=== PATIENT | male | born 1985 | race Caucasian/White ===

== ENCOUNTER 2024-03-12 15:27 | Inpatient (IN) | payer OTHER, SELFPAY ==
[2024-03-11] VITALS (12 sets, daily range): BP systolic 93–119; BP diastolic 50–83; BMI 22.6
--- NOTE | 2024-03-11 10:21 | ED.GENMED ---
History of Present Illness
<ORLIN Aguilar Last Filed: 03/11/24 17:26>
General
Chief Complaint: Head Injury
Source: patient
Exam Limitations: none
Time Seen by Provider: 03/11/24 10:21
Nursing documentation reviewed up to this point in time: agreed with
History of Present Illness
History of Present Illness:
This is a 38 y/o male presenting to the emergency department today with concerns of diplopia, nausea, vomiting. Patient states that his diplopia started this morning upon awakening. Patient states that he had different objects, he started to see
double. Patient states that when he stood up this morning he started to walk and felt that he tripped on a piece of clothing and fell and hit his head on the dresser. Patient is not recall what side of the head he hit the dresser. Patient reports
that since hitting his head, he has had nausea and vomiting. Patient has never had double vision before. Patient has never had vertigo before. Patient denies chest pain, eye pain, shortness of breath, abdominal pain, fevers or chills. Patient
states that he has been feeling well the past few days. Father present in room with patient who states that patient has been acting normally the past few days and denies any changes in his speech. Patient states also that he has a very difficult
time walking.
Past History
<ORLIN Aguilar Last Filed: 03/11/24 17:26>
Past History
ED Past Medical History: None; Negative HTN, Hypercholesterolemia, IDDM or NIDDM
ED Past Surgical History: Negative Cardiac or Cholecystectomy
Social History
Tobacco: Non-smoker
Alcohol: Occasional
Drug: None
Personal:
Living: with family
Employment: Employed
Family History
Family History: Negative Early CAD
Review of Systems
<ORLIN Aguilar Last Filed: 03/11/24 17:26>
Review of Systems
All Other Systems: ROS reviewed and negative except as documented in HPI and ROS
Phy Exam
<Melissa Baca PA-C - Last Filed: 03/11/24 17:26>
Physical Exam
Physical Exam:
General: Patient is well appearing and in no acute distress; non-toxic
Skin: Warm and dry, no rashes or lesions
Head: Normocephalic, atraumatic
Eyes: Sclera non-icteric. EOMs intact. PERRLA. Visual Acquity 20/30 bilaterally. No VIRGEN, no cranial nerve palsy. Sensation of diplopia occurs when both eyes are open but dissipates when either eye is covered.
Cardiac: Regular rate and rhythm, no murmurs
Peripheral Vascular: No lower extremity swelling or edema.
Pulm: Normal respiratory effort, no wheezes, rales, or rhonchi
Abdomen: No abdominal tenderness to palpation
Musculoskeletal: 5/5 strength in bilateral upper and lower extremeties
Neuro: AAOx3. GCS 15. CN II-XII intact, no focal neurologic deficits. Normal finger to nose, heel to fitzgerald testing.
Psychiatric: Appropriate mood and affect.
Course
<Melissa Baca PA-C - Last Filed: 03/11/24 17:26>
Orders/Labs/Results
Orders:
Orders
03/11/24 Breakfast
Regular
03/11/24 10:26
Ondansetron Injectable [Zofran] 4 mg IV NOW STA
03/11/24 10:27
0.9% Sodium Chloride 1000 ml [Nss] 1,000 ml IV BOLUS
03/11/24 10:30
Comprehensive Metabolic Panel Urgent
Ferritin Urgent
Comment: ADD ON
Folate Urgent
Comment: ADD ON
TSH Reflex To Free T4 Urgent
Comment: ADD ON
Vitamin B12 Urgent
Comment: ADD ON
Vitamin D, 25-Oh Urgent
03/11/24 10:43
Complete Blood Count/With Diff Urgent
03/11/24 10:45
CT Angio Head W/Wo Iv Contrast [CT Head Angio W/wo Iv Contrast] Urgent
Comment:
Reason For Exam: double vision
03/11/24 13:15
Meclizine [Antivert] 25 mg PO NOW STA
03/11/24 14:42
Admit/Transfer Patient As Directed
Co-Sign Provider:
Level of Care: Observation services
Assign to:: Telemetry
Physician / Group: Audrey
Diagnosis: Double Vision
Reason for Telemetry: CVA/TIA
Date to Stop Telemetry: 03/14/24
Time to Stop Telemetry: 11:00
03/11/24 14:48
Code Status As Directed
Resuscitation Status: Full Code
03/11/24 15:06
Add On- LAB Routine
Comments:: Please add to today's labs or draw as routine
Tests Added?: TSH reflex, Ferritin, Folate, Vit. B12, ESR, vitD25
03/11/24 17:05
Acetaminophen [Tylenol] 650 mg PO Q4HPRN PRN
03/11/24 17:05
Case Management Consult ONCE
Case Management Consult: Discharge Planning
Comment: stroke/tia
DIETARY CONSULT Routine
Reason for Consult: stroke/TIA
NEUROLOGY CONSULT Routine
Consulting Provider: Camden Valdes
Was physician already notified: Yes
MA Neck With Contrast Routine
Comment:
Reason For Exam: double vision
Recent pill cam endoscopy?: No
MR Brain W/o & With Contrast Routine
Comment:
Reason For Exam: double vision
Recent pill cam endoscopy?: No
Activity As Directed
Activity Level: Out of Bed- Chair
With Assistance
NIH Stroke Scale As Directed
Directions: Per protocol
Comment: every shift and with any change in condition or mental status
Neurological Checks As Directed
Frequency: q4h
Additional Instructions:: q4h x 24h upon admission to the floor, then qshift & with any change in condition
and mental status
Orthostatic Vital Signs As Directed
Orthostatic VS Frequency: Daily
Patient Education As Directed
Type: Stroke education packet
Comment: provide to patient and family
Pneumatic Compression Sleeves As Directed
Type: Knee high
Vital Signs As Directed
Frequency: Per unit guidelines
Smoking Cessation Counseling [RESP] Routine
Ot Eval And Treat Routine
Pt Eval And Treat Routine
Activity Level: Out of Bed-Early Mobility
With Assistance
Speech Therapy Eval & Treat Routine
DX Deep Vein Thrombosis Video Routine
03/12/24 06:00
Cardiovascular Evaluation IN AM
Complete Blood Count/No Diff IN AM
Comprehensive Metabolic Panel IN AM
Glycohemoglobin (HgbA1c) IN AM
Magnesium IN AM
03/12/24 08:00
Aspirin Chewable [Low Strength Aspirin] 81 mg PO DAILY
03/14/24 11:00
DC Protocol for Telemetry ONCE
Abnormal Lab Results
03/11/24 03/11/24
10:30 10:43
MCH 31.3 H pg
(27.0-31.0)
Chloride 108 H mmol/L
(98-107)
BUN 21 H mg/dl
(9-20)
Glucose 109 H mg/dl
(70-99)
Total Bilirubin 1.5 H mg/dl
(0.2-1.3)
03/11/24 10:43
03/11/24 10:30
Vital Signs
Initial and Last Documented VS:
Initial Vital Signs
Temp Pulse Resp BP Pulse Ox
98 F 50 16 98/57 98
03/11/24 10:11 03/11/24 10:11 03/11/24 10:11 03/11/24 10:11 03/11/24 10:11
Last Documented Vital Signs
Temp Pulse Resp BP Pulse Ox
97.9 F 49 16 112/69 96
03/11/24 17:02 03/11/24 17:02 03/11/24 17:02 03/11/24 17:02 03/11/24 17:02
<Elizabeth Monroy MD - Last Filed: 03/11/24 13:24>
Orders/Labs/Results
Orders:
Orders
03/11/24 Breakfast
Regular
03/11/24 10:26
Ondansetron Injectable [Zofran] 4 mg IV NOW STA
03/11/24 10:27
0.9% Sodium Chloride 1000 ml [Nss] 1,000 ml IV BOLUS
03/11/24 10:30
Comprehensive Metabolic Panel Urgent
Ferritin Urgent
Comment: ADD ON
Folate Urgent
Comment: ADD ON
TSH Reflex To Free T4 Urgent
Comment: ADD ON
Vitamin B12 Urgent
Comment: ADD ON
Vitamin D, 25-Oh Urgent
03/11/24 10:43
Complete Blood Count/With Diff Urgent
03/11/24 10:45
CT Angio Head W/Wo Iv Contrast [CT Head Angio W/wo Iv Contrast] Urgent
Comment:
Reason For Exam: double vision
03/11/24 13:15
Meclizine [Antivert] 25 mg PO NOW STA
03/11/24 14:42
Admit/Transfer Patient As Directed
Co-Sign Provider:
Level of Care: Observation services
Assign to:: Telemetry
Physician / Group: Audrey
Diagnosis: Double Vision
Reason for Telemetry: CVA/TIA
Date to Stop Telemetry: 03/14/24
Time to Stop Telemetry: 11:00
03/11/24 14:48
Code Status As Directed
Resuscitation Status: Full Code
03/11/24 15:06
Add On- LAB Routine
Comments:: Please add to today's labs or draw as routine
Tests Added?: TSH reflex, Ferritin, Folate, Vit. B12, ESR, vitD25
03/11/24 17:05
Acetaminophen [Tylenol] 650 mg PO Q4HPRN PRN
03/11/24 17:05
Case Management Consult ONCE
Case Management Consult: Discharge Planning
Comment: stroke/tia
DIETARY CONSULT Routine
Reason for Consult: stroke/TIA
NEUROLOGY CONSULT Routine
Consulting Provider: Camden Valdes
Was physician already notified: Yes
MA Neck With Contrast Routine
Comment:
Reason For Exam: double vision
Recent pill cam endoscopy?: No
MR Brain W/o & With Contrast Routine
Comment:
Reason For Exam: double vision
Recent pill cam endoscopy?: No
Activity As Directed
Activity Level: Out of Bed- Chair
With Assistance
NIH Stroke Scale As Directed
Directions: Per protocol
Comment: every shift and with any change in condition or mental status
Neurological Checks As Directed
Frequency: q4h
Additional Instructions:: q4h x 24h upon admission to the floor, then qshift & with any change in condition
and mental status
Orthostatic Vital Signs As Directed
Orthostatic VS Frequency: Daily
Patient Education As Directed
Type: Stroke education packet
Comment: provide to patient and family
Pneumatic Compression Sleeves As Directed
Type: Knee high
Vital Signs As Directed
Frequency: Per unit guidelines
Smoking Cessation Counseling [RESP] Routine
Ot Eval And Treat Routine
Pt Eval And Treat Routine
Activity Level: Out of Bed-Early Mobility
With Assistance
Speech Therapy Eval & Treat Routine
DX Deep Vein Thrombosis Video Routine
03/12/24 06:00
Cardiovascular Evaluation IN AM
Complete Blood Count/No Diff IN AM
Comprehensive Metabolic Panel IN AM
Glycohemoglobin (HgbA1c) IN AM
Magnesium IN AM
03/12/24 08:00
Aspirin Chewable [Low Strength Aspirin] 81 mg PO DAILY
03/14/24 11:00
DC Protocol for Telemetry ONCE
Abnormal Lab Results
03/11/24 03/11/24
10:30 10:43
MCH 31.3 H pg
(27.0-31.0)
Chloride 108 H mmol/L
(98-107)
BUN 21 H mg/dl
(9-20)
Glucose 109 H mg/dl
(70-99)
Total Bilirubin 1.5 H mg/dl
(0.2-1.3)
03/11/24 10:43
03/11/24 10:30
Vital Signs
Initial and Last Documented VS:
Initial Vital Signs
Temp Pulse Resp BP Pulse Ox
98 F 50 16 98/57 98
03/11/24 10:11 03/11/24 10:11 03/11/24 10:11 03/11/24 10:11 03/11/24 10:11
Last Documented Vital Signs
Temp Pulse Resp BP Pulse Ox
97.9 F 49 16 112/69 96
03/11/24 17:02 03/11/24 17:02 03/11/24 17:02 03/11/24 17:02 03/11/24 17:02
Mercedezlt;Melissa Baca PA-C - Last Filed: 03/11/24 17:26>
MDM/Problems Addressed
Differential Diagnosis Includes:
ddx include compressive aneurysm, brain tumor, intraparenchymal hemorrhage, orbital apex syndrome, BPPV, microvascular ischemia
MDM/Problems Addressed:
Double vision:
This is a 38 y/o male presenting to the emergency department today with concerns of diplopia, nausea, vomiting. Patient states that his diplopia started this morning upon awakening. Patient states that he had different objects, he started to see
double. Patient states that this sensation caused him to fall and hit his head. On physical exam, he has no VIRGEN, no cranial nerve palsy, visual Acquity 20/30 b/l. No signs of head trauma on exam. CT angio of head was negative for any acute
intracranial abnormality, no intracranial aneurysm. Patient's post concussive symptoms have resolved however double vision persists. Patient does smoke daily but denies any illicit drug or alcohol use. Patient will be admitted to the hospital for
further evaluation of double vission.
Chronic conditions affecting care:
n/a
Acute Exacerbation and/or Progression of Chronic Illness:
na
<Melissa Baca PA-C - Last Filed: 03/11/24 17:26>
*Pulse Oximetry
Patient hypoxic: no
*Critical Care Note
Total Time (30-74mins, 75-104mins- exclusive of procedures): Not Applicable
Data Reviewed
Review of Other/Old Records Reveals: Records (reviewed ER physician documentation from 07/24/13)
Source: patient and records
<Melissa Baca PA-C - Last Filed: 03/11/24 17:26>
Patient Management
Escalation/DeEscalation of care consider admission/obs:
admission indicated
ED Attending Note
<Melissa Baca PA-C - Last Filed: 03/11/24 17:26>
-
Portions of this chart may have been created with voice recognition software.� Occasional wrong word or��sound alike� substitutions may have occurred due to the inherent limitations of voice recognition software.
<Elizabeth Monroy MD - Last Filed: 03/11/24 13:24>
ED Attending Note
Patient seen and examined by attending physician: Yes
I performed the substantive portion of visit, reviewed & personally made and approve the management plan that is documented in note by myself or ARTUR.: Yes
ED Attending Note:
Patient appears well nontoxic. Patient's lungs are clear heart sounds regular. Nonfocal neurological exam, however, does have acute diplopia.
Discharge Plan
Departure
Patient Disposition: Admit
Date of Disposition: 03/11/24
Time of Disposition: 14:08
Admit to: Med/Surg
Presentation/result/management discussed w/ accepting MD/DO: Hospitalist
Condition: Good
Discharge Problem:
Double vision
Interventions
Interventions:
*Risk Screen - Suicide Last Done: 03/11/24 10:11
*General Assessment Last Done: 03/11/24 10:11
*Neglect/Abuse Screening Last Done: 03/11/24 10:11
ED- Fall Risk Assessment Last Done: 03/11/24 10:29
*ED COVID-19 Vaccine History Last Done: 03/11/24 10:29
*Nursing Disposition Last Done: 03/11/24 16:35
ED- Neurological Assessment Last Done: 03/11/24 10:29
ED-Skin Assessment Last Done: 03/11/24 10:29
Discharge Date and Time
Discharge Date/Time: 03/11/24 16:35
[2024-03-11] MEDS: ZOFRAN 4 MG IV (10:33)
[2024-03-11] MEDS: NSS 1000 IV (10:36)
--- NOTE | 2024-03-11 10:40 | EDRN ---
Received patient on stretcher with c/o double vision and nausea with vomiting. Patient stated that he woke this morning with double vision that caused him to fall into his dresser. Denies any speech difficulty,numbness/tingling and weakness.
[2024-03-11 10:56] LABS: % Basophils 0.9 % (0-2); % Eosinophils 4.2 % (0-6); % Immature Granulocytes 0.3 % (0-0.5); % Lymphocytes 29.2 % (20.5-51.1); % Monocytes 7.4 % (1.7-9.3); Absolute Basophils 0.1 10^3/uL (0-0.2); Absolute Eosinophils 0.3 10^3/uL (0-0.7); Absolute Monocytes 0.5 10^3/uL (0.1-0.6); Absolute Neutrophils 3.9 10^3/uL (1.4-6.5); Hematocrit 41.7 % (39.0-52.0); Hemoglobin 14.8 g/dL (13.0-18.0); Mean Corp Hgb Conc. 35.5 g/dL (33.0-37.0); Mean Corpuscular Hgb 31.3 pg (27.0-31.0); Mean Corpuscular Volume 88.2 fL (80.0-94.0); Mean Platelet Volume 9.6 fL (7.4-10.4); Nucleated Red Blood Cells % 0 % (-); Platelet Count 206 10^3/uL (130-400); Red Blood Cell Count 4.73 10^6/uL (4.70-6.10); Red Cell Dist. Width 12.8 % (11.5-14.5); White Blood Cell Count 6.7 10^3/uL (4.8-10.8)
[2024-03-11 11:08] LABS: ALT (SGPT) 32 U/L (0-50); AST (SGOT) 29 U/L (17-59); Albumin 4.7 g/dl (3.5-5.0); Alkaline Phosphatase 41 U/L (38-126); Blood Urea Nitrogen 21 mg/dl (9-20); Calcium 9.4 mg/dl (8.4-10.2); Carbon Dioxide 26 mmol/L (22-30); Chloride 108 mmol/L (98-107); Estimated Creatinine Clearance 116 ml/min; Glucose 109 mg/dl (70-99); Potassium 4.9 mmol/L (3.5-5.1); Sodium 140 mmol/L (135-145); Total Bilirubin 1.5 mg/dl (0.2-1.3); Total Protein 6.7 g/dl (6.3-8.2); eGFR > 60.00
--- NOTE | 2024-03-11 14:54 | HPS.HSE ---
Family Physician
-
Family Physician: Craig Palmer
Chief Complaint
-
Double Vision
History of Present Illness
Patient is a 38 y/o male without significant past medical history who presents with double vision. Patient reports he awoke this morning feeling very well. He states he felt very lightheaded and upon standing fell hitting his head on the dresser.
Following the fall he developed nausea and vomiting. He reports associated double vision which he describes as two images on top of the other which resolves with closing one eye. He denies similar episodes in the past. He denies prior episodes of
vertigo. He denies focal numbness, tingling or weakness.
Medical History
Past Medical History
Past Medical History: Reports None
Past Surgical History: Reports None
Social History
Tobacco: Smoker (4-5 Cigarettes per day)
Alcohol: None
Drug: Marijuana (Three times a week)
Family History
Family History: Not pertinent
Allergies / Home Medications
Allergies reflects when Allergies were last updated in [facility].
Home Medications with original date entered in [facility]
Allergy/Medication List:
Allergies
Allergy/AdvReac Type Severity Reaction Status Date / Time
No Known Allergies Allergy Verified 03/11/24 10:11
Home Medications
No Meds [No Current Medications] 03/11/24
Review of Systems
-
A 12 point ROS was completed and negative except as noted: Yes
Constitutional: Denies Fever or Chills
Respiratory: Denies Cough or Trouble Breathing
Cardiac: Denies Chest Pain or Palpitations
Physical Exam
Vital Signs
Vital Signs
Temp Pulse Resp BP Pulse Ox
98 F 41 16 119/83 100
03/11/24 10:11 03/11/24 12:41 03/11/24 12:41 03/11/24 11:00 03/11/24 10:33
Physical Exam
General: Comfortable and Conversant
HEENT: Anicteric and Moist mucous membranes
Respiratory: Clear and Non Labored Respirations
Cardiac: S1/S2, Regular Rhythm and Bradycardia (Slighty - Patient report his heart rate is usually in the 50s as he is very active and exercises frequently )
GI: Soft and Non Tender
Rectal: Deferred by Provider
Musculoskeletal: No Clubbing, No Cyanosis and No Edema
Skin: Warm and Dry
Neuro: Awake, Alert, Oriented and No Motor Deficits
Laboratory Results
-
03/11/24 10:43
03/11/24 10:30
Laboratory Results
Total Bilirubin 1.5 mg/dl (0.2-1.3) H 03/11/24 10:30
AST 29 U/L (17-59) 03/11/24 10:30
ALT 32 U/L (0-50) 03/11/24 10:30
Alkaline Phosphatase 41 U/L (38-126) 03/11/24 10:30
Data Reviewed
-
CT Scan: Report Reviewed by me
Lab Data: Labs Reviewed by me
Impression/Plan
-
Diplopia, likely secondary to extraocular muscle weakness (possibly 4th Cranial Nerve Palsy)
-Consult Neurology
-Check Brain MRI w/ and w/o contrast, and Neck MRA
-Start aspirin pending further imaging
-Encourage use of eye patch to help with symptoms
Tobacco Use Disorder
-Encourage smoking cessation
DVT proph: SCDs
Code Status: Full Code
--- NOTE | 2024-03-11 14:55 | CON.NEURO ---
Neuro Assessment/Plan
Assessment
Abrupt onset of diplopia
Given the patient's diplopia, difficulty with right upgaze and satelliting around the right upper extremity, differential diagnosis includes demyelinating lesion of the midbrain/alejandro, as well as acute ischemic lesion
Plan
Check MRI of brain with and without contrast to better understand possible structural abnormality producing symptoms
Check blood work for suggestion of inflammatory process
Okay to initiate aspirin 81 mg
May need to replace antiplatelet therapy with high-dose steroids based on MRI of brain results
Check lipid profile for completeness
Rehabilitation evaluations
Will follow results
Consultation
Order
Date of Consultation: 03/11/24
Requesting Provider: Hospitalists
Reason for Consult: Diplopia
Subjective/Objective
Subjective Data
Date of Service: March 11, 2024
Right-Handed
Patient presented to this hospital's emergency department with new onset diplopia, nausea and emesis. According to medical records, the patient awoke with diplopia at 06:15 which was followed by the patient having a mechanical fall striking his
head. The patient then developed nausea and emesis after striking his head. There is no prior episodes of diplopia. BT at 23:00.
Diplopia is improved, not resolved since onset. Second object is higher and elevated. Improved prolonged gaze. No pain.
Objective Data
Vital Signs
Temp Pulse Resp BP Pulse Ox
36.6 C 41 16 119/83 100
03/11/24 10:11 03/11/24 12:41 03/11/24 12:41 03/11/24 11:00 03/11/24 10:33
Lab Results
03/11/24 10:43
03/11/24 10:30
Sodium 140 mmol/L (135-145) 03/11/24 10:30
Potassium 4.9 mmol/L (3.5-5.1) 03/11/24 10:30
BUN 21 mg/dl (9-20) H 03/11/24 10:30
Glucose 109 mg/dl (70-99) H 03/11/24 10:30
Calcium 9.4 mg/dl (8.4-10.2) 03/11/24 10:30
Patient Allergies
No Known Allergies Allergy (Verified 03/11/24 10:11)
Review of Systems
-
History Source: Patient
All other systems: Reviewed and negative
EENT: Negative Blurry Vision, Decreased Vision, Tinnitis, Hearing Loss or Swallowing Difficulty
Respiratory: Negative Trouble Breathing
Cardiac: Negative Chest Pain
Abdomen/GI: Negative Incontinence of Stool
Genitourinary: Negative Incontinence
Musculoskeletal: Neck Pain (chronic); Negative Back Pain
Neuro: Negative Dizzy or Headache
Data Reviewed
-
CT-A: Report Reviewed
Labs: Report Reviewed
Reviewed with: Physician, Patient and Family
Medications
-
Home Medications
�Medication �Instructions �Recorded
No Meds [No Current Medications] 03/11/24
Past History
Past History
ED Past Medical History: None
ED Past Surgical History: None
Social History
Tobacco: Non-smoker
Alcohol: Occasional
Drug: None
Personal:
Living: with family
Employment: Employed
Family History
Family History: Negative Early CAD
[2024-03-11 16:00] LABS: Vitamin D, 25-OH*** 50.8 ng/mL (30-80)
[2024-03-11 16:13] LABS: TSH Reflex To Free T4 0.99 uIU/ml (0.47-4.68)
--- NOTE | 2024-03-11 16:30 | EDRN ---
Patient taken to room 318-1 on monitor on stretcher by ekg monitor tech. Family with patient.
--- NOTE | 2024-03-11 16:34 | W.PN.UPDATE ---
Update Note
Progress Note Update
This note serves as an addendum to the H&P by Lucia Jeffery PA-C on March 11, 2024.
History of Presenting Illness
38 y/o male without significant past medical history who presents with double vision. Patient stated that he woke up this morning and after he woke up, while still lying in bed, he saw double vision, described as a double of everything. He states he
felt lightheaded and upon standing fell hitting his head on the dresser. Following the fall, he developed nausea and vomiting, and was off balance with ambulation. His parents were present during admission, and his father stated that patient's
ambulation balance issues resolved when he was walking into the emergency room today. He denies similar episodes in the past. He denies prior episodes of vertigo. He denies focal numbness, tingling or weakness, and denied headache, pain with
moving his eyes, fever, any recent or known infection.
Vital Signs
Stable
Physical Exam
General: Comfortable and Conversant
HEENT: Normocephalic
Respiratory: CTAB
Cardiac: S1/S2, Regular Rhythm
GI: Soft and Non Tender. Positive bowel sounds.
Musculoskeletal: No Cyanosis and No Edema
Skin: Warm and Dry
Neuro: Awake, Alert, Oriented. Visual Acuity grossly intact -- diplopia improved. EOMI. and No Motor Deficits
Assessment/Plan
Diplopia of abrupt onset - IMPROVING
-Consulted Neurology, recommendations appreciated
-Check Brain MRI w/ and w/o contrast, and Neck MRA to check for stroke vs. demyelination vs. other process
-Start aspirin pending further imaging
-Lipid profile
-Based on imaging results, may need IV steroids
Tobacco Use Disorder
-Encourage smoking cessation
DVT prophylaxis: SCDs
Code Status: Full Code
[2024-03-11 16:49] LABS: Folate 9.3 ng/ml (2.76-20); Vitamin B12 416 pg/ml (239-931)
[2024-03-11] MEDS: VITAMIN B1 100 MG PO (17:05)
--- NOTE | 2024-03-11 17:09 | PTCARENOTE ---
pt admitted from ED awake and alert denies pain LCTA B/L on RA. abd soft NT. cont b&B skin CDI, no edema. +PP b/L CB in reach
[2024-03-12] VITALS (7 sets, daily range): BP systolic 105–127; BP diastolic 54–82; PULSE 67; O2SAT 100
[2024-03-12 06:47] LABS: Hemoglobin 14.2 g/dL (13.0-18.0); Mean Corp Hgb Conc. 34.6 g/dL (33.0-37.0); Mean Corpuscular Hgb 31.1 pg (27.0-31.0); Mean Corpuscular Volume 89.9 fL (80.0-94.0); Mean Platelet Volume 9.4 fL (7.4-10.4); Platelet Count 189 10^3/uL (130-400); Red Blood Cell Count 4.56 10^6/uL (4.70-6.10); Red Cell Dist. Width 12.9 % (11.5-14.5)
[2024-03-12 07:17] LABS: ALT (SGPT) 29 U/L (0-50); AST (SGOT) 29 U/L (17-59); Albumin 4.2 g/dl (3.5-5.0); Alkaline Phosphatase 39 U/L (38-126); Blood Urea Nitrogen 17 mg/dl (9-20); Calcium 9.2 mg/dl (8.4-10.2); Carbon Dioxide 28 mmol/L (22-30); Chloride 107 mmol/L (98-107); Estimated Creatinine Clearance 116 ml/min; Glucose 90 mg/dl (70-99); HDL Cholesterol 48 mg/dl; LDL Cholesterol, Calculated 92 mg/dl; Magnesium 1.9 mg/dl (1.6-2.3); Potassium 4.9 mmol/L (3.5-5.1); Sodium 140 mmol/L (135-145); Total Bilirubin 2.3 mg/dl (0.2-1.3); Total Cholesterol 153 mg/dl (50-199); Triglyceride 66 mg/dl (10-149); Very Low Density Lipoprotein 13 mg/dl (0-30); eGFR > 60.00
[2024-03-12] MEDS: LOW STRENGTH ASPIRIN 81 MG PO (09:04)
[2024-03-12] MEDS: VITAMIN B1 100 MG PO (09:04)
[2024-03-12 09:45] LABS: Lyme Antibody Screen, EIA Negative (Negative)
--- NOTE | 2024-03-12 09:46 | W.PN.NEURO.1 ---
Today's Communication / Plan
-
Check blood work for suggestion of inflammatory process
Continue aspirin 81 mg
Initiate clopidogrel 75 mg daily for 21 days, then discontinue
Request cardiology consultation due to the patient requiring consideration for KAREN and implantable monitoring coordinator
Outpatient hypercoagulable testing 6 weeks after new onset stroke
Initiate atorvastatin 40 mg daily with goal of LDL less than 70
Rehabilitation evaluations
Neuro Assessment/Plan
Assessment
Abrupt onset of diplopia
Due to acute ischemic lesion, left thalamic
Plan
Check blood work for suggestion of inflammatory process
Continue aspirin 81 mg
Initiate clopidogrel 75 mg daily for 21 days, then discontinue
Request cardiology consultation due to the patient requiring consideration for KAREN and implantable monitoring coordinator
Outpatient hypercoagulable testing 6 weeks after new onset stroke
Initiate atorvastatin 40 mg daily with goal of LDL less than 70
Rehabilitation evaluations
Will follow
Subjective/Objective
Subjective Data
Date of Service: March 12, 2024
Totally resolved symptoms.
Objective Data
Vital Signs
Temp Pulse Resp BP Pulse Ox
36.6 C 68 18 105/67 99
03/12/24 07:48 03/12/24 07:49 03/12/24 07:48 03/12/24 07:49 03/12/24 07:48
Lab Results
03/12/24 06:19
03/12/24 06:19
Sodium 140 mmol/L (135-145) 03/12/24 06:19
Potassium 4.9 mmol/L (3.5-5.1) 03/12/24 06:19
BUN 17 mg/dl (9-20) 03/12/24 06:19
Glucose 90 mg/dl (70-99) 03/12/24 06:19
Calcium 9.2 mg/dl (8.4-10.2) 03/12/24 06:19
LDL Cholesterol, Calc 92 mg/dl 03/12/24 06:19
Vitamin B12 416 pg/ml (522-931) 03/11/24 10:30
Patient Allergies
No Known Allergies Allergy (Verified 03/11/24 10:11)
Review of Systems
-
History Source: Patient
All other systems: Reviewed and negative
EENT: Negative Decreased Vision or Swallowing Difficulty
Respiratory: Negative Trouble Breathing
Cardiac: Negative Chest Pain
Abdomen/GI: Negative Incontinence of Stool
Genitourinary: Negative Incontinence
Musculoskeletal: Negative Back Pain or Neck Pain
Neuro: Negative Dizzy or Headache
Physical Exam
-
General: No Apparent Distress and Appears Stated Age
Eyes: OU Absent Papilledema, Round OU, Bergoo Conjunctivae and No Ptosis
HEENT: Anicteric and Moist Mucous Membranes
Neck: Full Range of Motion
Respiratory: No Dyspnea
Cardiac: No JVD
GI: Non-distended
Skin: Unremarkable
Extremities: No Clubbing, No Cyanosis and No Edema
Psych: Intact Judgement/Insight
Extended Neurological Exam
Mood & Affect: Mood Unremarkable and Affect Unremarkable
Attention Span & Concentration: Awake, Alert and Interactive
Memory: Unremarkable
Tremor: Hand Tremor Absent and Head Tremor Absent
Speech: Quality Unremarkable and Quantity Unremarkable
Cranial Nerve II: Left Eye: Pupillary Size Unremarkable and Visual Ferro Grossly Intact
Cranial Nerve II: Right Eye: Pupillary Size Unremarkable and Visual Ferro Grossly Intact
Cranial Nerves III, IV, : Extraocular Movement: Grossly Intact
Cranial Nerve VII: Facial Symmetry: Normal Facial Symmetry
Cranial Nerves IX, X: Palate Movement: Palate Elevation Symmetric
Muscle Strength, Overall: Spontaneously Moves (All extremities)
Muscle Bulk & Tone: Bulk Unremarkable and Tone Unremarkable
Pronator Drift: No Drift in Upper Extremities
Coordination: [id number] Testing Unremarkable
Data Reviewed
-
Labs: Report Reviewed
Lipid Profile: Report Reviewed
Reviewed with: Physician, Patient and Family
Old Records: Summarized
[2024-03-12] MEDS: PLAVIX 75 MG PO (10:17)
--- NOTE | 2024-03-12 13:11 | PTOTSP ---
Dysphagia Evaluation
Suspect oral/pharyngeal swallowing WFL based on clinical bedside swallowing evaluation.
No obvious aphasia or dysarthria observed at the conversation level. Consider further cognitive linguistic testing given reported head strike and findings of acute stroke.
Recommend:
1. Regular, Thin Liquids
2. Medications as best tolerated
3. General aspiration precautions
4. Consider cognitive linguistic screener.
--- NOTE | 2024-03-12 14:42 | CON.CAR ---
Addendum entered and electronically signed by Gagan Watt MD 03/12/24 16:20:
38 yo with tobacco abuse admitted with CVA. We are consulted to eval for cardiac source of embolus. He denies CP/palps. Exam: RRR, no murmurs, no edema. Echo shows: normal LVEF, no sig valve disease, and negative bubble.
I offered patient KAREN and ILR implant Friday. He does not want to stay the weekend. We will call patient and arrange for outpatient testing.
Original Note:
Consultation
Consultation Request
Date/Time Consultation Requested: 03/12/24 1128
Date/Time Consultation Performed: 03/12/24 1430
Requesting Provider: Dr. Ventura
Performing Provider: Madhuri TOVAR for Dr. Watt
Reason for Consultation: stroke
Medical History
-
Chief Complaint: diploplia
History of Present Illness:
38 y/o male with daily tobacco use, but no other known PMH is here for evaluation of waking up with diplopia yesterday. He then fell. There was associated nausea and vomiting. He is seen on imaging to have left thalamus stroke. We are consulted to
evaluate for cardiac cause.
Past Medical History
Past Medical History: None
Social History
Tobacco: Smoker
Drug: Marijuana
Family History
Family History: Reviewed & Not Pertinent
Allergies / Home Medications
Allergy/AdvReac Type Severity Reaction Status Date / Time
No Known Allergies Allergy Verified 03/11/24 10:11
�Medication �Instructions �Recorded �Confirmed �Type
No Meds [No Current Medications] 03/11/24 03/11/24 History
Review of Systems
-
History Source: Patient
All other systems: Negative unless noted
Neurological: Other (diplopia)
Physical Exam
Vital Signs
Temp Pulse Resp BP Pulse Ox
98.4 F 55 16 122/68 98
03/12/24 12:19 03/12/24 12:19 03/12/24 12:19 03/12/24 12:19 03/12/24 12:19
Lab Results
03/12/24 06:19
03/12/24 06:19
Physical Exam
General: Well Developed, Well Nourished and No Apparent Distress
HEENT: Normocephalic and Anicteric
Respiratory: Clear and Non Labored Respirations
Cardiac: Regular Rhythm
Musculoskeletal: No Edema
Skin: Warm and Dry
Neuro: AO x 3
Psych: Calm
Impression / Plan
-
Stroke, left thalamic:
-this diagnosis is threat to bodily function
-neuro following and inflammatory, hypercoagulable panels recommended- management per neuro/primary
-on DAPT, statin
-echo with bubble study today
-continue telemetry: SB/SR so far. I ordered EKG, which is pending.
-We recommended staying for KAREN/loop on Friday, but he declined staying over the weekend. He is agreeable to procedures as OP, however. We will arrange.
Tobacco use:
-recommend total cessation, which we discussed
Data Reviewed
-
EKG: Other (EKG is pending- I ordered it. Tele personally reviewed by me: YAMILKA and SR.)
Radiology: Report Reviewed by me
MRI: Report Reviewed by me (Brain MRI: There is a focal area of abnormal restricted diffusion within the left thalamus, and MR findings are highly suggestive of a focal area of acute to subacute infarction. Subtle mild increased FLAIR signal within
the anterior alejandro, greatest in the right paracentral region. ) and Other (neck MRA: MR angiography of the neck is within normal limits. )
Medical Tests (Nuc Med, Echo etc): Other (echo pending)
Labs: Labs Reviewed by me
--- NOTE | 2024-03-12 15:20 | PTCARENOTE ---
Bubble study completed here in cardiac services without difficulty.
--- NOTE | 2024-03-12 15:58 | W.PN.HOSP.TC ---
Today's Communication/Plan
-
Discharge today
Assessment / Plan
Assessment / Plan
Physical Exam
General: Not in acute distress
HEENT: Normocephalic
Respiratory: CTAB
Cardiac: S1/S2, Regular Rhythm
GI: Soft and Non Tender. Positive bowel sounds.
Musculoskeletal: No Cyanosis and No Edema
Skin: Warm and Dry
Neuro: Awake, Alert, Oriented. Cranial Nerves 2 through 12 intact. Strength 5/5 bilaterally. Sensation grossly intact bilaterally. Gait unremarkable/normal.

ECHOCARDIOGRAM
CONCLUSIONS
Normal biventricular size and systolic function without regional wall motion
abnormality. Estimated LVEF 55-60%.
No significant valve disease.
Interatrial septum is intact with no evidence of shunting by color flow
Doppler, or by bubble study with Valsalva (negative).
MRI Brain Report (as per radiologist's report)
IMPRESSION: There is a focal area of abnormal restricted diffusion within the left thalamus, and MR findings are highly suggestive of a focal area of acute to subacute infarction.
Subtle mild increased FLAIR signal within the anterior alejandro, greatest in the right paracentral region. This is a nonspecific white matter hyperintensity, perhaps associated with small vessel ischemic disease or vasculitis. Focal area of
demyelination would seem less likely. No additional white matter lesions are seen.

Assessment/Plan
Abrupt onset of diplopia - RESOLVED - due to acute ischemic lesion, left thalamic
-Consulted Neurology, recommendations appreciated
-Check imaging including CTA and MR
-Continue aspirin 81 mg
-Initiate clopidogrel 75 mg daily for 21 days, then discontinue
-Outpatient hypercoagulable testing 6 weeks after new onset stroke
-Initiate atorvastatin 40 mg daily with goal of LDL less than 70
-Confirmed with Dr. Valdes that there is no need for Thiamine on discharge
-Follow-up with cardiology for KAREN and ILR implant
Tobacco Use Disorder
-Encourage smoking cessation
DVT prophylaxis: SCDs
Code Status: Full Code
I spoke to patient and his family twice today, explained everything going on, and answered all their questions and concerns to satisfaction.
More than 30 minutes spent in discharge including
Final examination of the patient
Summarizing hospital stay
Instructions for continuing care to all relevant caregivers
Preparation of discharge records, prescriptions, and referral forms
Total time spent (in minutes): 43
Anticipated Discharge: Today
Subjective/Interval History
-
Date of Service: March 12, 2024
Patient was seen and examined. He reported that his double vision has resolved, and he is ambulating okay.
Objective Data
-
Labs:
Laboratory Results
03/12/24
06:19
WBC 7.0
Hgb 14.2
Hct 41.0
Plt Count 189
Sodium 140
Potassium 4.9
Chloride 107
Carbon Dioxide 28
BUN 17
Creatinine 0.9
Glucose 90
Calcium 9.2
Total Bilirubin 2.3 H D
AST 29
ALT 29
Alkaline Phosphatase 39
Vital Signs:
Vital Signs
Temp Pulse Resp BP Pulse Ox
98.4 F 55 16 122/68 98
03/12/24 12:19 03/12/24 12:19 03/12/24 12:19 03/12/24 12:19 03/12/24 12:19
--- NOTE | 2024-03-12 16:49 | W.DS.TRANS ---
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
-
Discharge Instructions:
Discharge Diagnosis/Procedures Abrupt onset of diplopia - RESOLVED - due to
acute ischemic lesion, left thalamic
Tobacco Use Disorder
ECHOCARDIOGRAM
CONCLUSIONS
Normal biventricular size and systolic function
without regional wall motion
abnormality. Estimated LVEF 55-60%.
No significant valve disease.
Interatrial septum is intact with no evidence of
shunting by color flow
Doppler, or by bubble study with Valsalva (
negative).
MRI Brain Report (as per radiologist's report)

IMPRESSION: There is a focal area of abnormal
restricted diffusion within the left thalamus,
and MR findings are highly suggestive of a focal
area of acute to subacute infarction.
Subtle mild increased FLAIR signal within the
anterior alejandro, greatest in the right paracentral
region. This is a nonspecific white matter
hyperintensity, perhaps associated with small
vessel ischemic disease or vasculitis. Focal
area of demyelination would seem less likely. No
additional white matter lesions are seen.
Diet Low Fat,Low Cholesterol,Low Sodium
Activity As tolerated
Blood Work Outpatient hypercoagulable testing 6 weeks after
new onset stroke
Others Tests Transesophageal echocardiogram and implantable
loop recorder- cardiology office will call you
to arrange.
Instructions: Stroke
Aspirin
Atorvastatin
Clopidogrel
Stand-Alone Forms:
Changes to Home Medications: Yes
Discharge Medications:
DC Medications w/original date entered in [facility]
aspirin 81 mg chewable tablet 81 mg PO DAILY #30 tabs 03/12/24
atorvastatin 40 mg tablet 40 mg PO DAILY #30 tabs 03/12/24
clopidogrel 75 mg tablet 75 mg PO DAILY 20 days #20 tabs 03/12/24
Home Medication Changes
Aspirin, Clopidogrel, and Atorvastatin are new medications.
Pending Results: No
Total time spent discharging patient (in min): 43
[2024-03-13 09:24] LABS: Glycohemoglobin (HgbA1c) 5.4 % (4.0-5.6)
[2024-03-14 00:35] LABS: ANA, IgG Reflex to HEp-2 None Detected (None Detected)
== END 2024-03-12 17:16 | disposition home or self-care (01) | DRG 69 ==
LOC: 3 WEST ACU 15:27
PROVIDERS: Physician Assistant; Physician Assistant Medical; ADMITTING PHYSICIAN Hospitalist; CONSULT PHYSICIAN Internal Medicine; CONSULT PHYSICIAN Psychiatry & Neurology Neurology; EMERGENCY PHYSICIAN Emergency Medicine; FAMILY PHYSICIAN Family Medicine
DX: I67.82 Cerebral ischemia (principal); H53.2 Diplopia; R11.2 Nausea with vomiting, unspecified; W01.190A Fall on same level from slipping, tripping and stumbling with subsequent striking against furniture, initial encounter; Y93.01 Activity, walking, marching and hiking; Y92.003 Bedroom of unspecified non-institutional (private) residence as the place of occurrence of the external cause; F17.210 Nicotine dependence, cigarettes, uncomplicated; F12.90 Cannabis use, unspecified, uncomplicated
CPT/HCPCS: 70496; 70548; 70553; 80053; 80061; 82306; 82607; 82728; 82746; 83036; 83735; 84443; 85025; 85027; 86038; 86618; 92610; 93005; 93306; 96361; 96374; 97161; 97165; 99285; A9585; Q9967

== ENCOUNTER 2024-03-31 08:32 | Day surgery (SDC) | payer OTHER, SELFPAY | END 2024-03-31 11:54 | disposition home or self-care (01) | LOC: CATH 08:32 | PROVIDERS: ATTENDING PHYSICIAN Internal Medicine Cardiovascular Disease; FAMILY PHYSICIAN Nurse Practitioner Family | DX: Z09 Encounter for follow-up examination after completed treatment for conditions other than malignant neoplasm (principal); Z86.73 Personal history of transient ischemic attack (TIA), and cerebral infarction without residual deficits; Q21.12 Patent foramen ovale; F17.210 Nicotine dependence, cigarettes, uncomplicated; Z79.82 Long term (current) use of aspirin | CPT/HCPCS: 93312; 93320; 93325 ==